=== PATIENT | female | born 1950 | race Caucasian/White ===

== ENCOUNTER 2018-01-17 14:47 | Emergency (ER) | payer MEDICARE, BC ==
--- NOTE | 2018-01-17 16:09 | RAD ---
LEFT WRIST RADIOGRAPH SERIES THREE VIEWS 01/17/18 INDICATION: Left arm deformity, injury, pain. FINDINGS: There is a comminuted intra-articular distal radial fracture with associated dorsal tilt of the radio carpal articular surface. There is override of fracture fragments. Osteoarthritis is present notably at the first CMC joint. IMPRESSION: Comminuted intra-articular distal radial fracture with associated dorsal tilt. Recommend orthopedic c onsultation. POS: [facility]
[2018-01-17] MEDS ORDERED: Bupivacaine 0.5% 10 ML VIAL ONE (16:42)
[2018-01-17] MEDS ORDERED: Ondansetron ODT 4 MG TAB ONE ×2 (16:42→17:02)
[2018-01-17] MEDS ORDERED: HYDROcodone/Acetaminophen 10/325 mg Tablet ONE (16:59)
--- NOTE | 2018-01-17 19:49 | RAD ---
LEFT WRIST TWO VIEWS: 01/17/18 at 1742 hours HISTORY: Wrist fracture. Reduction. COMPARISON: Earlier exam on the same date. FINDINGS: Overlying fiberglass cast is now apparent. There has been partial reduction of the posterior displace ment and angulation of the distal radial fracture, now with minimal posterior displacement and approx imately 30 degree dorsal angulation. Intra-articular component of fracture remains lucent. There is i mpaction and loss of inclination. IMPRESSION: Partial reduction left distal radial fracture. POS: [facility]
== END 2018-01-17 19:00 | disposition home or self-care (01) ==
LOC: ERS 14:47
DX: S52.502A Unspecified fracture of the lower end of left radius, initial encounter for closed fracture (principal); I10 Essential (primary) hypertension; I48.91 Unspecified atrial fibrillation; W17.89XA Other fall from one level to another, initial encounter
CPT/HCPCS: 25605; J2270; J3490; Q0162

== ENCOUNTER 2018-01-19 05:47 | Day surgery (SDC) | payer MEDICARE, BC ==
[2018-01-18 12:01] VITALS: BMI 20.5
[2018-01-19] MEDS ORDERED: Lidocaine 1% (PF) 30 ML VIAL ONE (06:28)
[2018-01-19] MEDS ORDERED: Fentanyl 100 MCG/2 ML VIAL ONE (06:28)
[2018-01-19] MEDS ORDERED: Midazolam HCl 2 mg/2 ml Vial ONE (06:28)
[2018-01-19 06:35] LABS: #Basophils 0.1 thou/uL (0.0-0.2); #Eosinphils 0.1 thou/uL (0.0-0.7); #Lymphocytes 1.4 thou/uL (1.20-3.40); #Monocytes 0.6 thou/uL (0.11-0.59); #Neutrophils 3.5 thou/uL (1.40-6.50); %Basophils 1.3 % (0.0-1.0); %Eosinophils 1.4 % (0.0-10.0); %Lymphocytes 24.7 % (21.0-51.0); %Monocytes 10.1 % (0.0-10.0); %Neutrophils 62.5 % (42.0-75.0); Hemoglobin 13.5 g/dL (12.0-16.0); Mean Corpuscular HGB CONC 32.8 g/dL (32.0-36.0); Mean Corpuscular Hemoglobin 32.5 pg (27.0-31.0); Mean Corpuscular Volume 99.1 fl (81.0-99.0); Mean Platelet Volume 6.7 fL (7.4-10.4); Platelet Count 247 thou/uL (130-400); RBC Distribution Width 11.7 % (11.5-14.5); Red Blood Cell (RBC) Count 4.15 mill/uL (4.20-5.40); White Blood Cell (WBC) Count 5.6 thou/uL (4.8-10.8)
[2018-01-19 06:53] LABS: Anion Gap 12 mmol/L (10-20); BUN (Urea Nitrogen) 14 mg/dL (9.8-20.1); Calc. Creatinine Clearance 62 mL/min (70-130); Calcium 9.1 mg/dL (7.8-10.44); Carbon Dioxide 25 mmol/L (23-31); Chloride 107 mmol/L (98-107); Estimated GFR-MDRD 80; Glucose 94 mg/dL (80-115); Sodium 140 mmol/L (136-145)
[2018-01-19] MEDS ORDERED: Clindamycin/D5W 600 mg/50 ml Premix Bag ONE (06:56)
[2018-01-19] MEDS ORDERED: traMADol HCl 50 MG TAB PO PRN ×2 (07:18)
[2018-01-19] MEDS ORDERED: Promethazine HCl 25 MG/ML VIAL IM PRN (07:18)
[2018-01-19] MEDS ORDERED: Ropivacaine 0.2% 550 ML 550 ML NERVE BLCK SCH (07:18)
[2018-01-19] MEDS ORDERED: Morphine 4 MG/ML VIAL ONE (07:18)
[2018-01-19] MEDS ORDERED: HYDROcodone/Acetaminophen 10/325 mg Tablet PO PRN ×2 (07:18)
[2018-01-19] MEDS ORDERED: Fentanyl 100 MCG/2 ML VIAL IV PRN (07:18)
[2018-01-19] MEDS ORDERED: Ondansetron HCl/PF 4 MG/2 ML Vial IVP PRN (07:18)
[2018-01-19] MEDS ORDERED: Zolpidem Tartrate 5 MG TAB PO PRN (07:18)
[2018-01-19] MEDS ORDERED: Ketorolac Tromethamine 30 MG/ML VIAL IVP PRN (07:20)
[2018-01-19] MEDS ORDERED: Ketorolac Tromethamine 30 MG/ML VIAL ONE (08:53)
[2018-01-19] MEDS ORDERED: Lidocaine 1% PF 5 ML VIAL ONE (08:53)
[2018-01-19] MEDS ORDERED: Ondansetron HCl/PF 4 MG/2 ML Vial ONE (08:53)
[2018-01-19] MEDS ORDERED: Propofol 200 MG/20 ML VIAL ONE (08:53)
--- NOTE | 2018-01-19 09:08 | RAD ---
TWO INTRAOPERATIVE IMAGES OF THE LEFT FOREARM: DATE: 01/19/18. HISTORY: Open reduction internal fixation distal left radial fracture. FINDINGS: There is a volar screw and plate fixation associated with the distal left radius. Alignment appears normal at the fracture site. IMPRESSION: Open reduction internal fixation as above. POS: [facility]
--- NOTE | 2018-01-20 08:06 | EKG ---
Test Reason : PREOP Blood Pressure : / mmHG Vent. Rate : 063 BPM Atrial Rate : 063 BPM P-R Int : 162 ms QRS Dur : 084 ms QT Int : 408 ms P-R-T Axes : 075 059 034 degrees QTc Int : 417 ms Normal sinus rhythm Normal ECG No previous ECGs available Confirmed by DR. Deepika SIMS ([id number]) on 01/20/2018 8:05:38 AM Referred By: JEWEL Confirmed By:DR. Deepika SIMS
--- NOTE | 2018-01-22 13:38 | OP ---
DATE OF PROCEDURE: 01/19/2018 PREOPERATIVE DIAGNOSIS: Left distal radius fracture. POSTOPERATIVE DIAGNOSIS: Left distal radius fracture, 3 fragments. PROCEDURE: Open reduction internal fixation left distal radius. ANESTHESIA: General. SURGEON: Dr. Isidro Child TELECOMMUNICATIONS OFFICER: Alfonso Samuel PA-C. TOURNIQUET TIME: 40 minutes at 250 mmHg. IMPLANTS: Synthes 2.4 mm variable angle LCP 2 column volar plate with distal locking screws and 2.7 mm cortical screws proximally. COMPLICATIONS: None. DRAINS: None. SPECIMEN: None. OUTCOME: Satisfactory. INDICATIONS: The patient is a 67-year-old lady status post ground level fall on her outstretched lef t hand. She sustained a displaced and mildly comminuted distal radius fracture. We are now schedule d for open reduction internal fixation. Informed consent has been obtained. I believe all questions answered. PROCEDURE: The patient was brought to the operating room and a timeout performed followed by inducti on of general anesthesia. Next, a sterile prep and drape was performed of the left upper extremity. The limb was then exsanguinated with Esmarch bandage, tourniquet inflated to 250 mmHg. A volar radi al skin incision was made. After skin was sharply incised, dissection was carried down bluntly betwe en the interval of the flexor carpi radialis and the brachial radialis. The neurovascular bundle was identified and reflected radially. Next, the pronator quadratus was released off the radial border of the distal radius and reflected in midline revealing the underlying fracture. The fracture was re duced under direct visualization and then a 2 column volar plate was applied to the volar cortex of t he distal radius. This was provisionally held in place with a 2.7 mm screw proximal to the fracture. Next, AP, lateral C-arm images were obtained that showed acceptable alignment of the plate. A tota l of 4 screws were then placed in the distal limb of the plate securing the distal fragment and then 2 additional screws placed proximally. After completion of this, radial inclination and length were restored and volar tilt was brought back to a neutral alignment. Next, the wound was irrigated with normal saline and closed in layers with 2-0 Vicryl deep, followed by nylon for the skin. A Xeroform gauze, Webril, and a sugar tong splint was applied to the wrist and the patient was transferred to [facility] room in stable condition. There were no complications and she tolerated the procedure well.
== END 2018-01-19 11:00 | disposition home or self-care (01) ==
LOC: SDC 05:47
PROVIDERS: ATTEND Orthopaedic Surgery
PROC: 0PSJ04Z Reposition Left Radius with Internal Fixation Device, Open Approach (ICD-10-PCS; principal; 2018-01-19)
DX: S52.502A Unspecified fracture of the lower end of left radius, initial encounter for closed fracture (principal); Z88.0 Allergy status to penicillin; Z88.2 Allergy status to sulfonamides; Z88.6 Allergy status to analgesic agent; Z88.8 Allergy status to other drugs, medicaments and biological substances; Z98.890 Other specified postprocedural states
CPT/HCPCS: 25609; 73090; 76001; 80048; 85025; 93005; A4306; C1713; 36415; 93010; J1885; J2001; J2250; J2270; J2405; J2704; J2795; J3010; J3490

== ENCOUNTER 2024-04-09 09:02 | Outpatient (CLI) | payer MEDICARE | END 2024-04-09 09:03 | disposition home or self-care (01) | LOC: SCSMRI 09:02 | PROVIDERS: ATTEND Family Medicine | DX: M25.562 Pain in left knee (principal); S83.242A Other tear of medial meniscus, current injury, left knee, initial encounter; M94.262 Chondromalacia, left knee ==